=== PATIENT | female | born 1965 | race Caucasian/White ===

== ENCOUNTER 2016-11-01 07:22 | Emergency (ER) | payer OTHER ==
[2016-11-01 08:43] LABS: BASOPHIL 0.5 % (0-2); HCT 37.6 % (37.0-47.0); LYMPHOCYTE 24.3 % (15-48); MCH 25.9 pg (25.0-31.0); MCHC 31.9 g/dL (32.0-36.0); MCV 81.2 fL (78.0-100.0); MONOCYTE 8.7 % (0-12); MPV 10.9 fL (6.0-9.5); NEUTROPHIL 65.5 % (41-80); PLT 256 K/uL (150-400); RBC 4.63 M/uL (4.20-5.40); RDW 15.1 % (11.5-14.0)
[2016-11-01 09:00] LABS: CREATININE 0.6 mg/dL (0.5-1.0); POTASSIUM 4.2 mmol/L (3.5-5.1)
== END 2016-11-01 12:45 | disposition home or self-care (01) ==
LOC: FER 07:22
PROVIDERS: Internal Medicine
DX: H83.09 Labyrinthitis, unspecified ear (principal); F32.9 Major depressive disorder, single episode, unspecified; Z79.899 Other long term (current) drug therapy
CPT/HCPCS: 36415; 70450; 80048; 85025